=== PATIENT | male | born 1975 | race Caucasian/White ===

== ENCOUNTER 2017-05-20 15:51 | Emergency (ER) | payer SELFPAY ==
[~2017-05-20] VITALS: Ht 185.4 cm; Wt 115.0 kg
[2017-05-20 15:54] VITALS: BP 151/90
[2017-05-20] MEDS ORDERED: HYDROcodone/APAP 5/325 TABLET ONE (16:17)
[2017-05-20] MEDS ORDERED: LIDOCAINE 1%, 20ML ONE (16:28)
[2017-05-20] MEDS ORDERED: HYDROcodone/APAP 5/325 TABLET PO ONE (16:30)
[2017-05-20] MEDS ORDERED: LIDOCAINE 1%, 20ML SQ ONE (16:30)
== END 2017-05-20 16:56 | disposition home or self-care (01) ==
LOC: ED 16:56
DX: K04.7 Periapical abscess without sinus (principal); Z91.041 Radiographic dye allergy status; Z91.013 Allergy to seafood
CPT/HCPCS: 41800; 99283; J3490